=== PATIENT | male | born 1960 | race Caucasian/White ===

== ENCOUNTER 2018-09-29 12:15 | Inpatient (IN) | payer OTHER ==
[~2018-09-29] VITALS: Ht 154.9 cm; Wt 70.8 kg
[2018-09-29] MEDS ORDERED: omeprazole (12:24)
[2018-09-29] MEDS ORDERED: feosol (12:24)
[2018-09-29] MEDS ORDERED: lisinopril (12:24)
[2018-09-29 13:05] LABS: CHLORIDE 109 mEq/L (98-107)
[2018-09-29 13:07] LABS: INR 1.1; PROTHROMBIN TIME 11.4 sec (9.6-11.0)
[2018-09-29 13:17] LABS: BASOPHILS % 0.8 % (0.0-2.0); EOSINOPHILS % 2.4 % (0.0-5.0); HEMOGLOBIN. 10.2 g/dL (14.0-18.0); LYMPHOCYTES % 16.5 % (20.0-50.0); MEAN CORPUSCULAR HEMOGLOBIN 31.5 pg (28.0-32.0); MEAN CORPUSCULAR VOLUME 89.4 fL (80.0-94.0); MONOCYTES % 7.2 % (2.0-8.0); NEUTROPHILS % 73.1 % (40.0-76.0); RED BLOOD CELL COUNT 3.24 mill/uL (4.7-6.1); RED CELL DISTRIBUTION WIDTH 15.6 % (11.6-14.6)
[2018-09-29 14:22] LABS: PLATELET ESTIMATE MARKEDLY DECREASED
[2018-09-29 14:23] LABS: PLATELET 19 x1000/uL (130-400)
[2018-09-29 15:30] LABS: HEPATITIS B SURFACE ANTIGEN NEGATIVE
[2018-09-29 16:00] LABS: HEPATITIS A AB IGM NEGATIVE (NEGATIVE)
[2018-09-29] MEDS ORDERED: DOCUSATE SODIUM 100MG CAPSULE PO PRN (23:30)
[2018-09-29] MEDS ORDERED: ONDANSETRON HCL 4MG/2ML INJ IV PRN (23:30)
[2018-09-29] MEDS ORDERED: IPRATROPIUM/ALBUTEROL 0.5-3(2.5)MG/3ML NEB INH PRN (23:30)
[2018-09-29] MEDS ORDERED: ACETAMINOPHEN 325MG TABLET PO PRN (23:30)
[2018-09-29] MEDS ORDERED: MAGNESIUM/ALUMINUM HYDROXIDE/SIMETHICONE 30ML UDC PO PRN (23:30)
[2018-09-29] MEDS ORDERED: CLONIDINE 0.1MG TABLET PO PRN (23:30)
[2018-09-30] VITALS (7 sets, daily range): BP systolic 106–151; BP diastolic 53–68
[2018-09-30 00:13] LABS: CHLORIDE 109 mEq/L (98-107)
[2018-09-30] MEDS ORDERED: LISI10TA5 MT (01:27)
[2018-09-30] MEDS ORDERED: FERR140T2 MT (01:27)
[2018-09-30] MEDS ORDERED: OMEP40CA34 MT (01:27)
[2018-09-30] MEDS: OMEPRAZOLE 20MG CAPSULE EXTENDED RELEASE PO SCH (05:48)
[2018-09-30 05:59] LABS: BASOPHILS % 0.9 % (0.0-2.0); EOSINOPHILS % 2.9 % (0.0-5.0); HEMATOCRIT. 26.9 % (42.0-52.0); HEMOGLOBIN. 9.2 g/dL (14.0-18.0); MEAN CORPUSCULAR HEMOGLOBIN 31.4 pg (28.0-32.0); MEAN CORPUSCULAR VOLUME 91.5 fL (80.0-94.0); MEAN PLATELET VOLUME 10.7 fl (7.4-10.4); MONOCYTES % 7.4 % (2.0-8.0); NEUTROPHILS % 67.8 % (40.0-76.0); RED BLOOD CELL COUNT 2.95 mill/uL (4.7-6.1); RED CELL DISTRIBUTION WIDTH 15.8 % (11.6-14.6)
[2018-09-30 13:08] LABS: HIV SCREEN 4G Non Reactive (Non Reactive)
[2018-09-30 14:37] LABS: PLATELET 28 x1000/uL (130-400)
[2018-09-30 15:06] LABS: CLARITY URINE CLEAR (CLEAR); COLOR URINE YELLOW (YELLOW); KETONES URINE NEGATIVE (NEGATIVE); LEUKOCYTE ESTERASE URINE NEGATIVE (NEGATIVE); NITRITE URINE NEGATIVE (NEGATIVE); OCCULT BLOOD URINE NEGATIVE (NEGATIVE); PH URINE 5.5 (4.5-8.0); PROTEIN URINE NEGATIVE (NEGATIVE); SPECIFIC GRAVITY URINE 1.014 (1.005-1.030); UROBILINOGEN URINE 0.2 E.U./dL (0.2-1.0)
[2018-10-01] VITALS: BP 118/70
[2018-10-01 04:00] VITALS: BP 120/70
[2018-10-01] MEDS: OMEPRAZOLE 20MG CAPSULE EXTENDED RELEASE PO SCH (05:50)
[2018-10-01 06:17] LABS: BASOPHILS % 1.2 % (0.0-2.0); HEMOGLOBIN. 10.2 g/dL (14.0-18.0); LYMPHOCYTES % 21.6 % (20.0-50.0); MEAN CORPUSCULAR HEMOGLOBIN 31.3 pg (28.0-32.0); MEAN PLATELET VOLUME 9.8 fl (7.4-10.4); MONOCYTES % 7.9 % (2.0-8.0); NEUTROPHILS % 65.3 % (40.0-76.0); RED BLOOD CELL COUNT 3.26 mill/uL (4.7-6.1); RED CELL DISTRIBUTION WIDTH 15.7 % (11.6-14.6)
[2018-10-01 06:55] LABS: PLATELET 47 x1000/uL (130-400)
[2018-10-01 07:50] LABS: CHLORIDE 108 mEq/L (98-107)
[2018-10-01 08:00] VITALS: BP 119/54
[2018-10-01 12:00] VITALS: BP 120/57
[2018-10-01 14:59] VITALS: BP 120/57
== END 2018-10-01 15:45 | disposition home or self-care (01) | DRG 813 ==
LOC: ER 12:15 → 5WST 22:03 → ENRESERV 23:37
PROVIDERS: ADMIT Internal Medicine; ATTEND Internal Medicine
DX: D69.6 Thrombocytopenia, unspecified (principal); I10 Essential (primary) hypertension; K21.9 Gastro-esophageal reflux disease without esophagitis; K76.9 Liver disease, unspecified; R73.9 Hyperglycemia, unspecified; D64.9 Anemia, unspecified
CPT/HCPCS: 36415; 76700; 80048; 80061; 83735; 84443; 86705; 86709; 86803; 86850; 86900; 87340; 87389; 93005; 93970; 99285